=== PATIENT | female | born 1990 | race Caucasian/White ===

== ENCOUNTER 2025-08-02 12:00 | Outpatient (AMB) | payer OTHER, SELFPAY ==
--- NOTE | 2025-08-02 12:26 | A.OFFVIS_ITS ---
Intake Visit Reasons: Diplopia Allergies No Known Allergies Allergy (Verified 07/25/25 12:25) HPI Comments Details: The patient is a 34-year-old female presenting with episodes of vision loss and dizziness. In January 2021, she experienced a brief episode of diplopia while driving, which prompted immediate concern. Suddenly, she started seeing double with 1 thing on top of each other. She stopped driving and look at her hands and other objects and noted that everything was double. There was no obvious mental confusion but she was very nervous and panicking. Although assessed by her primary care physician, further investigation was not pursued at that time. A subsequent longer-lasting episode of dizziness and disorientation in May, which also occurred while driving, led her to seek emergency care, but initial diagnostic tests were normal. During this episode, there was an element of out-of-body experience or brain not completely working out for few sec. there was no associated headache or double vision. The whole episode lasted for about 20 minutes. She has been having similar type of episodes though not that severe or not that prolonged. The patient's medical history is notable for past concussions, with the most significant incident related to a soccer injury in high school. Despite her history of concussions, such episodes have not been frequent or linked to chronic symptoms. Family medical history is significant for a benign brain tumor in her maternal aunt. The patient leads an active lifestyle without dietary irregularities or substance abuse and acknowledges a tendency towards anxiety, which was a concern during her medical evaluation. [facility] Medical History (Updated 08/02/25 @ 12:44 by Cristofer Siu MD) Family history of colon cancer Temporomandibular joint disorder Attention deficit hyperactivity disorder Moderate depressive disorder Fear of flying Anxiety Iron deficiency Vitamin D deficiency Herpes simplex Family History (Updated 07/25/25 @ 13:22 by JEMIMA Rice) Mother Hypothyroidism Anxiety Essential hypertension Adenomatous polyp of colon Maternal Grandfather Malignant tumor of colon Paternal Grandmother Neoplasm of lung Father Paranoid schizophrenia Paternal Grandfather Malignant tumor of prostate Review of Systems Const Details: - Neurological: Reports episodes of vision loss as diplopia and dizziness. Denies nausea and headaches associated with episodes, but acknowledges feeling anxious during episodes. - Cardiovascular: Reports increased heart rate due to anxiety during episodes. - General: Denies significant fatigue, weakness, or other systemic symptoms. Physical Exam Neuro Other: Mental Status: Alert and oriented to person, place, and time. Normal attention. Normal spontaneous speech, fluency, and comprehension. No obvious issues with mood and memory. Affect is appropriate. Cranial Nerves: CN II: Visual betts full to confrontation, visual acuity intact. CN III, IV, : Pupils equal, round, reactive to light and accommodation. Extraocular movements are normal. CN V: Facial sensation is normal. CN VII: Facial movements symmetrical. CN VIII: Hearing intact to bedside conversation is normal. CN IX, X: Palate elevates symmetrically. CN XI: Shoulder shrug and head turn symmetrical. CN XII: Tongue midline without atrophy or fasciculations. Motor: Bulk and tone normal in all extremities. No significant muscle weakness in arms and legs. No drift. Reflexes: Deep tendon reflexes 2+ and symmetric. Plantar response down-going bilaterally. Coordination: Qbqadp-ek-ynjw and zkkp-cs-tuoi testing normal. No dysmetria. Gait and Station: No obvious gait abnormality. No ataxia or instability. Extrapyramidal: Full facial expressions and blinking. No rigidity. Movements are appropriate with no tremor or abnormality. Speech: Normal; no dysarthria or tremor. Assessment & Plan Assessment & Plan (1) Seizure disorder: Code(s): G40.909 - Epilepsy, unspecified, not intractable, without status epilepticus Category: Medical Plan Impression: Seizure disorder vs migraine. She denied any previous h/o migraine Rec: a: EEG b: MRI brain [facility] Orders: Orders EEG electroencephalogram Today G40.909 - Epilepsy, unspecified, not intractable, without status epilepticus MR head/brain wo/w con Today G40.909 - Epilepsy, unspecified, not intractable, without status epilepticus Coding Level of Care Code New Pt Level 5 (46658) Diagnoses Seizure disorder G40.909
--- OUTSIDE RECORDS SUMMARY | 2025-08-02 13:23 | XMS_ITS | Encounter Summary ---
Author Organization [facility] Address [address] [facility] [address] [facility] [address] [place] [address] Phone Care Team Providers Care Bike Technician Name Role Phone Niurka Ibrahim Primary Care Provider [phone] Encounter Details Date Type Department Care Team (Late st Contact Info) Description 06/06/2025 Procedure Pass [facility], Ct Scan - [address] [address] Social History Tobacco Use Types Packs/Day Years Used Date Smoking Tobacco: Never Smokeless Tobacco: Never Alcohol Use Standard Drinks/Week Comments Not Currently 0 (1 standard drink = 0.6 oz pur e alcohol) Education Answer Date Recorded Are you interested in more education? Not on nataliia e 03/28/2023 Are you concerned about learning? Not on file 03/28/2023 No 03/28/2023 No 03/28/2023 Food Answer Date Recorded Within the past 6 months we worried whether our food would run out before we got money to buy more. Never True 06/06/2025 Within the past 6 months the food we bought just didn't last and we didn't have enough money to get more. Never True Residential Stability Answer Date Recor ded What is your housing situation today? I have spenser sing 06/06/2025 How many times have you move d in the past 12 months? Zero (I did not move) 06/06/2025 Paying for Meds Answer Date Recorded Do you have trouble paying for medicines? No 06/06/2025 Paying Utility Bills Answer Date Record ed Do you have trouble paying your heating or elect ricity bill? No 06/06/2025 Transportation Answer Date Recorded Has the lack of transportati on kept you from medical appointments or from getting medications? No 06/06/2025 Digital Access Answer Date Recorded No 06/06/2025 Yes 06/06/2025 Do you have reliable internet access at home? Ye s 06/06/2025 Do you have a device (e.g., phone, tablet, computer) with a working camera? Yes 06/06/2025 Intimate Partner Violence Answer Date R ecorded Are you denied basic needs s uch as food, clothing, or medical care? No 06/06/2025 In the past 12 months have y ou been in a relationship with a person who hurts, threatens, or tries to control you? No 06/06/2025 Are you denied basic needs s uch as food, clothing, or medical care? No 06/06/2025 In the past 12 months have y ou been in a relationship with a person who hurts, threatens, or tries to control you? No 06/06/2025 Comments Unknown Sex and Gender Information Value Date Recorded Sex Assigned at Female 06/06/2025 1:39 PM EDT Legal Sex Female 3:08 AM EST Gender Identity Female 06/06/2025 1:39 PM EDT Sexual Orientation Queer 06/06/2025 1: 40 PM EDT documented as of this encounter Functional Status * Calculated C-SSRS Risk Score (Lifetime/Recent) Answer Date of Assessment Author No Risk Indicated 06/06/2025 3:35 PM EDT Grace Escamilla RN * [place] Suicide Severity Rating Scale (Screener/Recent Self-Report) Question Answer Date of Assessment Author 1. Wish to be (Past 1 Month) No 025 3:35 PM EDT Grace Escamilla RN 2. Non-Specific Active Suici donny Thoughts (Past 1 Month) No 06/06/2025 3:35 PM EDT Shoaib Escamilla RN 6. Suicidal Behavior (Lifetime) No 3:35 PM EDT Grace Escamilla RN documented as of this encounter Plan of Treatment Not on file documented as of this encounter Visit Diagnoses Not on filedocumented in this encounter Care Teams Bike Technician Relationship Specialty Start Date End Date Niurka Ibrahim PA [address] [place] [phone] PCP - General Physician Travel Information Center Supervisor 11/07/23 documented as of this encounter Additional Source Comments The information contained in this document represents components of the legal health record. It is not the complete legal health record.[facility]
--- OUTSIDE RECORDS SUMMARY | 2025-08-02 13:23 | XMS_ITS | Clinical Summary ---
Author Organization [facility] Address [address] [place] [address] Phone Care Team Providers Care Attorney Law Clerk Name Role Phone Niurka Ibrahim Primary Care Provider [phone]- [phone] Allergies Active Allergy Reactions Criticality Noted Date Comments House Dust 11/07/2023 Medications acyclovir (ZOVIRAX) 200 MG capsule ACYCLOVIR 200 MG CAPS 3 Active dextroamphetami ne-amphetamine (ADDERALL XR) 20 MG 24 hr capsule Take 1 capsule by mouth every morning. 3 Active FLUoxetine (PROZAC) 20 MG capsule PROZAC 20 MG CAPS 3 Active sertraline (ZOLOFT) 50 MG tablet Take 1.5 tablets by mouth every morning. 3 Active ketotifen (ZADITOR) 0.025 % (0.035 %) ophthalmic solution Place 1 drop into each eye 2 (two) times a day. 5 mL 3 Active Active Problems Problem Noted Date Diagnosed Date Irritable bowel syndrome 06/21/2013 Overview (01/21/2015): Irritable bowel syndrome Gastroesophageal reflux disease 06/21/2013 Overview (01/21/2015): Gastroesophageal reflux disease Attention deficit hyperactiv ity disorder (ADHD), predominantly inattentive type 05/31/2013 Allergic rhinitis, seasonal 11/28/2010 Acne vulgaris 10/27/2009 Depression 10/27/2009 Eating disorder 12/01/2004 Encounters Date Type Department Care Team Description 06/06/2025 1:47 PM EDT - 06/06/2025 6:31 PM EDT Emergency [facility] [address] [place] [address] Richard Maurice MD Discharge Disposition: Home or Self Care 06/06/2025 Procedure Pass [facility], Ct Scan - [facility] [address] [place] [address] from Last 3 Months Immunizations No known immunizations Social History Tobacco Use Types Packs/Day Years Used Date Smoking Tobacco: Never Smokeless Tobacco: Never Tobacco Cessation:Counseling Given: Not Answered Alcohol Use Standard Drinks/Week Comments Not Currently [...] Orientation Queer 06/06/2025 1: 40 PM EDT Last Filed Vital Signs Vital Sign Reading Time Taken Comments Blood Pressure 126/87 06/06/2025 5:27 PM EDT Pulse 64 06/06/2025 5:27 PM EDT Temperature 36.3 C (97.3 F) 06/06/2025 5:27 PM EDT Respiratory Rate 18 06/06/2025 5:27 PM EDT Oxygen Saturation 97% 06/06/2025 5:27 PM EDT Inhaled Oxygen Concentration - - Weight 65.8 kg (145 lb) 06/06/2025 1:42 PM EDT Height 170.2 cm (5' 7 ) 06/06/2025 1:42 PM EDT Body Mass Index 22.71 06/06/2025 1:42 PM EDT Plan of Treatment Health Maintenance Due Date Last Done Comments DEPRESSION SCREENING 2000 HEPATITIS C SCREENING 2006 HIV ONE-TIME SCREENING (18-65 YEARS) 2006 SMOKING STATUS SCREENING (Once After 26 Yrs) 2014 COVID-19 VACCINE ( season) 2024 07/19/2021, 06/28/2021 INFLUENZA VACCINE (#1) 2025 PAP SMEAR 04/25/2026 04/25/2023, 08/10/2019 Adult Td,Tdap Booster 03/17/2029 03/17/2019 , 08/21/2007, 08/21/2007, Additional history exists HIB VACCINES Completed 06/25/1990 MENINGOCOCCAL VACCINES (ACWY) Completed 08/21/2007 HEPATITIS A VACCINES Aged Out 06/02/2012, 04/17/20 10 No longer eligible based on patient's age to complete this topic MENINGOCOCCAL VACCINES (B) Aged Out N o longer eligible based on patient's age to complete this topic PNEUMOCOCCAL VACCINES (0-49 years) Aged Out No longer eligible based on patient's age to complete this topic Medical Devices Not on file Procedures Procedure Name Priority Date/Time Associated Diagnosis Comments CT HEAD WITHOUT CONTRAST Routine 06/06/2025 5:00 PM EDT LFTS (HEPATIC PANEL) Routine 06/06/2025 2:34 PM EDT LIPASE Routine 06/06/2025 2:34 PM EDT C-REACTIVE PROTEIN Routine 06/06/2025 2: 34 PM EDT HCG (QUANTITATIVE, BLOOD) STAT 06/06/2025 2:34 PM EDT CBC AND DIFFERENTIAL STAT 06/06/2025 2:34 PM EDT BASIC METABOLIC PANEL STAT 06/06/2025 2:34 PM EDT PAP TEST Routine 04/25/2023 12:00 AM EDT from Last 3 Months or Most Recently Relevant to Health Maintenance Results * CT HEAD WITHOUT CONTRAST (06/06/2025 5:00 PM EDT) Anatomical Region Laterality Modality Head Computed Tomogra phy 06/06/2025 6:00 PM EDT Impressions 06/06/2025 6:01 PM EDT No acute intracranial findings. 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 Doubt subdural but it is on the differential. TECHNIQUE: CT of the head was performed without intravenous contrast using tailored dose modulation techniques. Images were reconstructed in the axial, coronal, and sagittal planes. COMPARISON: None FINDINGS: Brain Parenchyma: Normal. No midline shift, mass effect, parenchymal hemorrhage, or evidence of acute territorial infarct. Ventricular System and Extra-Axial Spaces: Normal. No extra-axial fluid collections. Basal cisterns are patent. No hydrocephalus. Osseous and Extracranial Structures: No calvarial fracture or significant soft tissue hematoma. No significant paranasal sinus disease. No orbital abnormality. 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 Doubtsubdural but it is on the differential. TECHNIQUE: CT of the head was performed without intravenous contrast usingtailored dose modulation techniques. Images were reconstructed in theaxial, coronal, and sagittal planes. COMPARISON: None FINDINGS: Brain Parenchyma: Normal. No midline shift, mass effect, parenchymalhemorrhage, or evidence of acute territorial infarct. Ventricular System and Extra-Axial Spaces: Normal. No extra-axial fluidcollections. Basal cisterns are patent. No hydrocephalus. Osseous and Extracranial Structures: No calvarial fracture or significantsoft tissue hematoma. No significant paranasal sinus disease. No orbitalabnormality. IMPRESSION: No acute intracranial findings. us Richard Maurice MD IMG CT HEAD/NECK Final Resu lt * (ABNORMAL) LFTs (hepatic panel) (06/06/2025 2:34 PM EDT) ALKALINE PHOSPHATASE 32(L) 39 - 117 U/L [facility] TOTAL BILIRUBIN 0.6 0.0 - 1.2 mg/dL [facility] DIRECT BILIRUBIN 0.2 0.0 - 0.2 mg/dL [facility] Bilirubin (Indirect) 0.4 0 - 1.5 mg/dL [facility] AST 40(H) 0 - 37 U/L [facility] ALT 20 0 - 40 U/L [facility] TOTAL PROTEIN 7.3 6.5 - 8.0 g/dL [facility] ALBUMIN 4.6 3.9 - 4.8 g/dL [facility] GLOBULIN 2.7 1 - 4.8 g/dL [facility] A/G Ratio 1.70 1.00 - 4.80 RATIO [facility] 06/06/2025 2:34 PM EDT 06/06/2025 2:37 PM EDT us Eric Gonzáles MD LAB BLOOD ORDERABLES Fin al Result [address] [address] * (ABNORMAL) CBC and differential (06/06/2025 2:34 PM EDT) WBC 7.60 4.00 - 11.00 K/uL [facility] RBC 4.30 4.00 - 5.20 M/uL [facility] HGB 12.6 12.0 - 16.0 g/dL [facility] HCT 37.9 36.0 - 46.0 % [facility] PLT 251 150 - 450 K/uL [facility] MCV 88.1 80.0 - 100.0 fL [facility] MCH 29.3 27.0 - 31.0 pg [facility] MCHC 33.2 32.0 - 36.0 g/dL [facility] RDW 13.8 11.5 - 14.5 % [facility] MPV 10.2 8.4 - 12.0 fL [facility] NRBC 0.00 0.00 /100 WBCs [facility] ABSOLUTE NRBC 0.00 0.00 K/uL [facility] DIFF METHOD Auto [facility] NEUTS 77.5(H) 48.0 - 76.0 % [facility] LYMPHS 16.6(L) 18.0 - 41.0 % [facility] MONOS 5.0 4.0 - 11.0 % [facility] EOS 0.1 0.0 - 5.0 % [facility] BASOS 0.5 0.0 - 1.5 % [facility] Granulocytes, immature (%) 0.3 0.0 - 0.9 % [facility] ABSOLUTE NEUTS 5.89 1.92 - 7.60 K/uL [facility] ABSOLUTE LYMPHS 1.26 0.72 - 4.10 K/uL [facility] ABSOLUTE MONOS 0.38 0.16 - 1.10 K/uL [facility] ABSOLUTE EOS 0.01 0.00 - 0.50 K/uL [facility] ABSOLUTE BASOS 0.04 0.00 - 0.15 K/uL [facility] Granulocytes, immature 0.02 0.00 - 0.09 K/uL [facility] Blood 06/06/2025 2:34 PM EDT 06/06/2025 2:37 PM EDT Eric Gonzáles MD LAB BLOOD ORDERABLES Fin al Result Performing Organization Address City/[facility]/ZIP Co de Phone Number [address] [address] * C-Reactive Protein (06/06/2025 2:34 PM EDT) C REACTIVE PROTEIN <3.0 0.0 - 4.0 mg/L [facility] 06/06/2025 2:34 PM EDT 06/06/2025 2:37 PM EDT Eric Gonzáles MD LAB BLOOD ORDERABLES Fin al Result Performing Organization Address [facility] Co de Phone Number [address] [address] * HCG (Quantitative, Blood) (06/06/2025 2:34 PM EDT) HCG BETA 0.2 mIU/mL [facility] Comment: Interpretation: FEMALE: Negative: Less than or equal to 1 mIU/mL. 4 Weeks Post Conception: 9.5 - 750 mIU/mL. 12 Weeks Post Conception: [id number] - [id number] mIU/mL. Test Methodology [employer] e801 Patient results determined by assays using different manufacturers or methods may not be comparable. Blood 06/06/2025 2:34 PM EDT 06/06/2025 2:37 PM EDT Eric Gonzáles MD LAB BLOOD ORDERABLES Fin al Result Performing Organization Address City/[facility]/ZIP Co de Phone Number [address] [address] * Lipase (06/06/2025 2:34 PM EDT) LIPASE 30 16 - 63 U/L [facility] 06/06/2025 2:34 PM EDT 06/06/2025 2:37 PM EDT Eric Gonzáles MD LAB BLOOD ORDERABLES Fin al Result Performing Organization Address [facility] Co de Phone Number [address] [address] * Basic metabolic panel (06/06/2025 2:34 PM EDT) SODIUM 135 133 - 146 mmol/L [facility] CHLORIDE 102 96 - 108 mmol/L [facility] POTASSIUM 4.3 3.3 - 5.1 mmol/L [facility] CO2 21 21 - 35 mmol/L [facility] BUN 10 6 - 19 mg/dL [facility] CREATININE 0.70 0.5 - 1.5 mg/dL [facility] GLUCOSE 92 70 - 99 mg/dL [facility] CALCIUM 9.9 8.4 - 10.3 mg/dL [facility] EGFR 115 >59 mL/min/1.7 3m2 [facility] Comment:Estimated glomerular filtration rate calculated using the CKD-EPI refit equation. ANION GAP 16 10 - 20 mmol/L [facility] Blood 06/06/2025 2:34 PM EDT 06/06/2025 2:37 PM EDT Eric Gonzáles MD LAB BLOOD ORDERABLES Fin al Result Performing Organization Address City/[facility]/ZIP Co de Phone Number [address] [address] * Pap Test (04/25/2023 12:00 AM EDT) 04/25/2023 04/29/2023 8:2 9 AM EDT Narrative SEE NARRATIVE - 05/01/2023 8:26 AM EDT [address] [address] [employer] Human[employer] Teacher: Ernestine Cota MD [place] AUDITOR Cytology Report FINAL DIAGNOSIS A. PAP SMEAR (SUREPATH) CE: SPECIMEN ADEQUACY: Satisfactory for evaluation; transformation zone absent/insufficient. INTERPRETATION: NEGATIVE FOR INTRAEPITHELIAL LESION OR MALIGNANCY. Electronically Signed Out By: FRANCISCO Leon(ASCP) The Pap test is a screening test primarily for squamous cancers and precursors and has associated false-negative and false-positive results. New technologies such as liquid-based preparations may decrease but will not eliminate all false-negative results. Regular sampling and follow-up of unexplained clinical signs and symptoms are recommended to minimize false negative results. PROCEDURES/ADDENDA HPV Testing (Requested) Ordered Date: 04/29/2023 A. PAP SMEAR (SUREPATH) CE: Human Papilloma Virus Test NEGATIVE for high-risk Human Papilloma Virus types 16, 18, 45 and the Other high risk probe set (Includes 31, 33, 35, 39, 51, 52, 56, 58, 59, 66, 68) Note: Testing performed by [facility] HR-HPV analysis. Clinical correlation is advised. This HPV test was performed at [facility], [address] [place] [address]. This test has been FDA approved for [facility] cervical cytology specimens. The accuracy and precision of this test for all other specimen sources has been verified in the Cytopathology Laboratory of the [facility] and has not been cleared or approved by the U.S. Food and Drug Administration. Clinical correlation is advised. CLINICAL HISTORY Date of Last Menstrual Period: Not Provided Menstrual History: Unknown Other Clinical Conditions: Screening Pap SPECIMEN SOURCE A: PAP SMEAR (SUREPATH) CE Patient Name: ERICA ANGUIANO : 1990 (Age: 32) Sex: F Institution: [facility] Location: [facility] Date of Collection: 04/25/2023 Date of Reported: 05/01/2023 08:26 Results to: Niurka Ibrahim PAC Niurka Ibrahim PA CYTOLOGY ORDERABLES Final Result SEE NARRATIVE from Last 3 Months or Most Recently Relevant to Health Maintenance Insurance [facility] QUALITY LIMITED [employer] Care Teams Attorney Law Clerk Relationship Specialty Start Date End Date Niurka Ibrahim PA [address] [place] [id number] PCP - General Physician Staking Engineer 11/07/23 Additional Source Comments The information contained in this document represents components of the legal health record. It is not the complete legal health record.[facility]
== END 2025-08-02 12:53 | disposition home or self-care (01) ==
LOC: HO.HSM 12:00
PROVIDERS: PCP Physician Assistant Medical; Visit Provider Psychiatry & Neurology Neurology
DX: G40.909 Epilepsy, unspecified, not intractable, without status epilepticus (principal)
CPT/HCPCS: 99204

== ENCOUNTER 2025-08-17 10:46 | Outpatient (REF) | payer OTHER, SELFPAY ==
--- NOTE | ~2025-08-17 | MR_ITS ---
EXAMINATION: MR BRAIN WITHOUT AND WITH CONTRAST CLINICAL INFORMATION: G40.909. Epilepsy, unspecified, not intractable. COMPARISON: None available. TECHNIQUE: Multiplanar, multisequence MRI of the brain was obtained before and after the intravenous administration of 7.0 mL gadolinium based (Gadavist) without reported immediate complications.. FINDINGS: There is a focal susceptibility signal with a blush of enhancement at the right parietal deep white matter. There is a 9.7 mm nonenhancing no restricted diffusion CSF signal slightly anterior and inferior to the temporal horn right lateral ventricle. There is slight asymmetric morphology without volume loss lower signal abnormality or enhancement in the right hippocampus/right temporal uncal region. No restricted diffusion. No acute intracranial hemorrhage, mass effect, midline shift, hydrocephalus or herniation. Lira-white matter differentiation is normal. Flow-void signal within the main cerebral vessels is normal. Posterior cranial fossa contents demonstrated 4 mm descensus of the cerebellar tonsils below foramen magnum. Sellar/suprasellar region is normal. 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 Electronically signed by: Moe Keen MD 08/17/2025 02:52 PM EDT
--- NOTE | 2025-08-17 14:35 | EEG_ITS ---
Roomed Performed:?402 Reason: epilepsy History: ADHD, depressive disorder, anxiety, iron deficiency - Patient reports episode of double vision while driving, once in 2020 and once this past May. Patient did not report any obvious mental confusion. Medication: unknown Technical description ? Photic stimulation: completed Hyperventilation: good effort? Behavioral state: cooperative State of Consciousness: awake Skull defect: no Sedation: none Handedness: right Duration of study:?31 min 56 sec This is a 16 channel EEG with an EKG lead. Patient is reported awake during the tracing. Background EEG rhythm is 12-14 hertz 5-50 microvolt posteriorly and lower amplitude fast anteriorly. Photic stimulation does not produce any significant driving. Hyperventilation is unremarkable. Cardiac lead does not reveal any significant abnormality. No sharp wave spikes or paroxysmal tendency noted. Impression: Unremarkable EEG. MTDD
== END 2025-08-17 10:47 | disposition home or self-care (01) ==
LOC: HO.NEURO 10:46
PROVIDERS: PCP Physician Assistant Medical; Visit Provider Psychiatry & Neurology Neurology
DX: G40.909 Epilepsy, unspecified, not intractable, without status epilepticus (principal); Q28.3 Other malformations of cerebral vessels
CPT/HCPCS: 70553; 95816

== ENCOUNTER → 2025-08-17 13:31 | Outpatient (BNV) | payer OTHER, SELFPAY | PROVIDERS: PCP Physician Assistant Medical; Visit Provider Radiology Diagnostic Radiology | DX: G40.909 Epilepsy, unspecified, not intractable, without status epilepticus (principal) | CPT/HCPCS: 70553 ==

== ENCOUNTER → 2025-08-17 14:35 | Outpatient (BNV) | payer OTHER, SELFPAY | PROVIDERS: PCP Physician Assistant Medical; Visit Provider Psychiatry & Neurology Neurology | DX: G40.909 Epilepsy, unspecified, not intractable, without status epilepticus (principal) | CPT/HCPCS: 95816 ==